=== PATIENT | male | born 1960 | race Caucasian/White ===

== ENCOUNTER 2018-01-21 09:26 | Emergency (ER) | payer BC ==
[2018-01-21] MEDS: Diphtheria,Pertussis(Acell),Tetanus Vaccine 0.5 ML SDV IM ONE (11:08)
[2018-01-21] MEDS: Bacitracin/Neomycin/Polymyxin B Oint 0.9 GM U/D Packet TOP ONE (11:16)
--- NOTE | 2018-01-21 12:07 | EDM.PDOC ---
ED HPI GENERAL MEDICAL PROBLEM - General Chief Complaint: Upper Extremity Injury/Pain Stated Complaint: finger laceration Time Seen by Provider: 01/21/18 09:38 Source of Information: Reports: Patient History Limitations: Reports: No Limitations - History of Present Illness INITIAL COMMENTS - FREE TEXT/NARRATIVE: Patient cut left ring finger with icebox man while trying to graft plants. Comes in with electrical tape holding wound edges closed. Denies other injuries. Feels it has been over 10 years since last tetanus update. 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: Dressing(s) - Related Data Allergies Allergy/AdvReac Type Severity Reaction Status Date / Time egg Allergy Other Verified 01/21/18 09:42 peanut Allergy Other Verified 01/21/18 09:42 Home Meds: Home Meds Aspirin [Halfprin] 1 tab PO DAILY 01/21/18 [History] Fluticasone/Vilanterol [Breo Ellipta 200-25 Mcg INH] 1 each IH DAILY 01/21/18 [ History] Triamcinolone Acetonide [Nasacort] 16.9 ml NS DAILY 01/21/18 [History] Past Medical History - Infectious Disease History Infectious Disease History: Reports: Chicken Pox, Measles, Mumps, Rubella Social & Family History - Tobacco Use Smoking Status *Q: Former Smoker Years of Tobacco use: 4 Packs/Tins Daily: 1 Used Tobacco, but Quit: Yes Month/Year Tobacco Last Used: 1984 - Caffeine Use Caffeine Use: Reports: None - Recreational Drug Use Recreational Drug Use: Yes Recreational Drug Type: Reports: Marijuana/Hashish Review of Systems - Review of Systems Review Of Systems: ROS reveals no pertinent complaints other than HPI. ED EXAM, GENERAL - Physical Exam Exam: See Below Exam Limited By: No Limitations General Appearance: Alert, WD/WN, No Apparent Distress Head: Atraumatic, Normocephalic Respiratory/Chest: No Respiratory Distress Extremities: Other (linear laceration longitudinally tip of left 4th finger, running next to lateral portion of nail (nail intact), over tip of finger, and partially through to finger pad. No obvious loss of tendon function. NVI. No other injuries noted. ) Neurological: Alert, Oriented, Normal Cognition, No Motor/Sensory Deficits Psychiatric: Normal Affect, Normal Mood Skin Exam: Warm, Dry ED TRAUMA EXTREMITY PROCEDURES - Laceration/Wound Repair Left Distal Digit - 4th (Ring) Lac/Wound Length In cm: 3.0 Appearance: Linear, Clean Distal NVT: Neuro & Vascular Intact, No Tendon Injury Anesthetic Type: Other (5cc placed for digital block. 2cc places near wound margins) Local Anesthesia - Lidocaine (Xylocaine): 1% Plain Local Anesthetic Volume: Other (7cc) Skin Prep: Providone-Iodine (Betadine) Exploration/Debridement/Repair: Wound Explored, In a Bloodless Field, Explored to Base, No Foreign Material Found Closed With: Sutures Suture Size: 4-0 # of Sutures: 6 Suture Type: Nylon, Interrupted Drain Placement: No Sterile Dressing Applied: Nurse Tetanus Status Addressed: Yes Complications: No Course - Vital Signs Last Recorded V/S: Last Vital Signs Temp 36.9 C 01/21/18 11:22 Pulse 57 L 01/21/18 11:22 Resp 20 01/21/18 11:22 BP 128/72 01/21/18 11:22 Pulse Ox 100 01/21/18 11:22 - Orders/Labs/Meds Orders: Active Orders 24 hr Category Date Time Status Vaccines to be Administered [RC] PER UNIT ROUTINE Care 01/21/18 09:39 Active Fingers Fourth Digit Lt F3 [CR] Stat Exams 01/21/18 09:39 Taken Meds: Medications Discontinued Medications Generic Name Dose Route Start Last Admin Trade Name Freq PRN Reason Stop Dose Admin Diphtheria/Tetanus/Acell Pertussis 0.5 ml 01/21/18 09:39 01/21/18 11:08 Adacel IM 01/21/18 09:40 0.5 ml .ONCE ONE Administration Lidocaine HCl 5 ml 01/21/18 11:05 01/21/18 11:16 Xylocaine-Mpf 1% INJECT 01/21/18 11:06 5 ml ONETIME ONE Administration Lidocaine HCl 5 ml 01/21/18 11:27 01/21/18 11:50 Xylocaine-Mpf 1% INJECT 01/21/18 11:28 5 ml ONETIME ONE Administration Neomycin/Polymyxin/Bacitracin 1 each 01/21/18 11:05 01/21/18 11:16 Triple Antibiotic Oint TOP 01/21/18 11:06 1 each ONETIME ONE Administration - Re-Assessments/Exams Free Text/Narrative Re-Assessment/Exam: 01/21/18 15:11 laceration repaired. Tetanus updated. Wound care discussed. Patient will be placed on Keflex BID for 6 days. Precautions reviewed. Sutures out in 12 days. Departure - Departure Time of Disposition: 12:06 Disposition: Home, Self-Care 01 Condition: Good Clinical Impression: Finger laceration Qualifiers: Encounter type: initial encounter Finger: ring finger Damage to nail status: without damage Foreign body presence: without foreign body Laterality: left Qualified Code(s): S61.215A - Laceration without foreign body of left ring finger without damage to nail, initial encounter - Discharge Information *PRESCRIPTION DRUG MONITORING PROGRAM REVIEWED*: Not Applicable *COPY OF PRESCRIPTION DRUG MONITORING REPORT IN PATIENT MOHIT: Not Applicable Instructions: Sutured Wound Care, [id number] Referrals: Stevenson Ruiz PA-C [Primary Care Provider] - Forms: ED Department Discharge Additional Instructions: Take Keflex every 12 hours for 6 days. Wound soaks twice daily as discussed, followed by topical antibiotic. Keep wound covered at work. Watch for infection and follow up for recheck if you have concerns. Sutures out in 12 days. - My Orders Last 24 Hours: My Active Orders 01/21/18 09:39 Vaccines to be Administered [RC] PER UNIT ROUTINE Fingers Fourth Digit Lt F3 [CR] Stat - Assessment/Plan Last 24 Hours: My Active Orders 01/21/18 09:39 Vaccines to be Administered [RC] PER UNIT ROUTINE Fingers Fourth Digit Lt F3 [CR] Stat
== END 2018-01-21 12:00 | disposition home or self-care (01) ==
LOC: LL.ED 09:26
DX: S61.215A Laceration without foreign body of left ring finger without damage to nail, initial encounter (principal); Z23 Encounter for immunization; W26.8XXA Contact with other sharp object(s), not elsewhere classified, initial encounter; Z91.012 Allergy to eggs; Z79.82 Long term (current) use of aspirin; Z87.891 Personal history of nicotine dependence; Z91.010 Allergy to peanuts
CPT/HCPCS: 12002; 73140-F3; 90471; 90715; 96372; 99283